=== PATIENT | male | born 1990 | race Caucasian/White ===

== ENCOUNTER 2017-01-12 21:59 | Observation (INO) | payer MEDICAID, OTHER ==
[~2017-01-12] VITALS: Ht 191.8 cm; Wt 80.4 kg
[2017-01-12] MEDS ORDERED: SOD CHLORIDE 0.9% 1,000 ML IV STA (22:38)
--- NOTE | 2017-01-12 22:44 | ERA ---
ER Documentation Chief Complaint Date/Time DATE: 01/12/17 TIME: 22:39 Chief Complaint FAINTED AFTER GETTING OUT OF CAR, DIASIXTO SMOKED MARIJUANNA EARLIER. HPI This is a 26-year-old male who is here he said he had developed windows rolled up and they were hot boxing. He said that he was watching Netflix in the car with his friends that he felt like his heart was skipping beats we felt like he needed to get some air. He then got out of the car and passed out for a few seconds. He did hit his head. He is not complaining of any pain. Says he feels normal now but stoned. Says he at baseline has a low heart rate does not know how low. Did not have any preceding chest pain shortness of breath. He says that he smoked pot from the same batch that he smoked tonight. He said he smoked his entire joint by himself. He says he smokes pot regularly. Patient's friend is now arrived to witness this event. She says the patient was smoking pot in the car and then he said he did not feel well so he got out of the car and she witnessed him syncopized and fell to the floor. She said he started shaking all over for about 10 seconds and he stopped it immediately woken stood up. He then got back in the car and a few minutes later he said he felt bad again so he got out of the car once again and again passed out was shaking for 7 seconds. He then was less responsive and got back in the car again. The patient then had another syncopal episode while in the car sitting in the car. Said he passed out completely and was unresponsive and had some mild shaking going on as well. She said he wakes up after each shaking episode is completely with it does not appear to have a postictal state. The patient says he smoked no more pot than usual. He says he smoked pot from the same patch before without any problems. 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 Medications Home Meds No Active Prescriptions or Reported Meds Allergies Allergies: Coded Allergies: No Known Allergy (Unverified , 01/12/17) FmHx Family History: No coronary disease Physical Exam Vitals Vital Signs Date Time Temp Pulse Resp B/P Pulse Ox O2 Delivery O2 Flow Rate FiO2 01/12/17 22:06 96.6 50 22 103/51 99 Physical Exam Const: Well-developed, well-nourished Head: Atraumatic, normocephalic Eyes: Normal Conjunctiva, PERRLA, EOMI, normal sclera, no nystagmus ENT: Normal External Ears, Nose and Mouth, moist mucus membranes. Neck: Full range of motion. No meningismus, no lymphadenopathy. Resp: Clear to auscultation bilaterally, no wheezing, rhonchi, rales Cardio: Sinus bradycardia with a sinus arrhythmia, heart rates 50-60, no murmurs, S1 S2 present] Abd: Soft, non tender x 4, non distended. Normal bowel sounds, no guarding or rebound, no pulsitile abdominal masses or bruits Skin: No petechiae or rashes, no ecchymosis , no maculopapular rash Back: No midline or flank tenderness Ext: No cyanosis, or edema, FROM x 4, normal inspection, neurovascularly intact x 4 Neur: Awake and alert, STR 5/5 x 4, sensation intact x 4, no focal findings, cerebellum intact Psych: Normal Mood and Affect Result Diagram: 01/12/17225801/12/172258 Results 24 hrs Laboratory Tests Test 01/12/17 22:59 White Blood Count 7.110^3/ul Red Blood Count 5.2410^6/ul Hemoglobin 15.7g/dl Hematocrit 44.9% Mean Corpuscular Volume 85.7fl Mean Corpuscular Hemoglobin 30.0pg Mean Corpuscular Hemoglobin Concent 35.0g/dl Red Cell Distribution Width 11.7% Platelet Count 60870^3/UL Mean Platelet Volume 10.9fl Neutrophils % 58.9% Lymphocytes % 28.8% Monocytes % 7.5% Eosinophils % 3.8% Basophils % 0.7% Nucleated Red Blood Cells % 0.0/100WBC Neutrophils # 4.210^3/ul Lymphocytes # 2.010^3/ul Monocytes # 0.510^3/ul Eosinophils # 0.310^3/ul Basophils # 0.110^3/ul Nucleated Red Blood Cells # 0.010^3/ul Sodium Level 138mmol/L Potassium Level 3.7mmol/L Chloride Level 101mmol/L Carbon Dioxide Level 29mmol/L Anion Gap 12 Blood Urea Nitrogen 16mg/dl Creatinine 1.12mg/dl Glucose Level 107mg/dl Calcium Level 9.4mg/dl Troponin I < 0.012ng/ml Current Medications Medications (Trade) Dose Ordered Sig/Alexis Route PRN Reason Start Time Stop Time Status Last Admin Dose Admin Sodium Chloride (NS) 1,000 ml @ 1,000 mls/hr Q1H STAT IV 01/12/17 22:38 01/12/17 23:37 DC 01/12/17 23:13 Procedures/MDM EKG: Rate/Rhythm: Sinus bradycardia with a right axis deviation QRS, ST, QT: NORMAL IN, QRS, QT] Impression: Sinus bradycardia] PROCEDURE: CT head, without contrast. CLINICAL INDICATION: Syncope. TECHNIQUE: Noncontrast CT examination of the head, with axial, sagittal and coronal reformatted images. Automated dose exposure control was employed. CTDI: 45.01 and DLP: 720.23 COMPARISON: None. FINDINGS: No acute hemorrhage. Subarachnoid spaces are substantially preserved and symmetric. Ventricles are unremarkable. No mass effect. Osorio-white matter distinction is preserved without evident decreased attenuation to suggest acute or recent infarct. Left maxillary sinusitis is partially visualized with mucous retention air- fluid level. Sinuses and osseous structures are otherwise unremarkable. IMPRESSION: 1. Partially visualized left maxillary sinusitis. 2. Otherwise, no acute process in the head. RPTAT: [facility] Physician Xavi Date Time Electronically viewed and signed by Physician Xavi on 01/12/2017 23:55 RS/ CC: TIGRE CONNELLY DO PROCEDURE: XR Chest. CLINICAL INDICATION: Syncope. TECHNIQUE: Single frontal chest x-ray. COMPARISON: None available. FINDINGS: The cardiomediastinal silhouette is unremarkable. No pneumothorax, pleural effusion or consolidation is seen. No acute osseous abnormality is noted. IMPRESSION: 1. No acute cardiopulmonary abnormality. RPTAT: HFN .Sherie Doyle MD, Date Time Electronically viewed and signed by .Sherie Doyle MD, MD on 01/12/2017 22: 59 .N/ CC: TIGRE CONNELLY DO Patient's heart rate is been running in the 40s and 50s while in the observation the ER. We will observe him for bradycardia and recurrent syncope. This is likely due to marijuana use however needs to watch him sure that he does not have anymore bradycardia episodes requiring any cardiovascular intervention Departure Diagnosis: Primary Impression: Syncope Qualified Code: R55 - Syncope, unspecified syncope type Additional Impressions: Substance abuse Bradycardia Condition: Stable TIGRE CONNELLY DO Jan 12, 2017 22:44
--- NOTE | 2017-01-12 22:59 | RADRPT ---
PROCEDURE: XR Chest. CLINICAL INDICATION: Syncope. TECHNIQUE: Single frontal chest x-ray. COMPARISON: None available. FINDINGS: The cardiomediastinal silhouette is unremarkable. No pneumothorax, pleural effusion or consolidation is seen. No acute osseous abnormality is noted. IMPRESSION: 1. No acute cardiopulmonary abnormality. RPTAT: HFN .Sherie Doyle MD, Date Time Electronically viewed and signed by .Sherie Doyle MD, on 01/12/2017 22:59 .N/
--- NOTE | 2017-01-12 23:55 | RADRPT ---
PROCEDURE: CT head, without contrast. CLINICAL INDICATION: Syncope. TECHNIQUE: Noncontrast CT examination of the head, with axial, sagittal and coronal reformatted im ages. Automated dose exposure control was employed. CTDI: 45.01 and DLP: 720.23 COMPARISON: None. FINDINGS: No acute hemorrhage. Subarachnoid spaces are substantially preserved and symmetric. Ventricles ar e unremarkable. No mass effect. Osorio-white matter distinction is preserved without evident decreased attenuation t o suggest acute or recent infarct. Left maxillary sinusitis is partially visualized with mucous retention air-fluid level. Sinuses and osseous structures are otherwise unremarkable. IMPRESSION: 1. Partially visualized left maxillary sinusitis. 2. Otherwise, no acute process in the head. RPTAT: [facility] Physician Xavi Date Time Electronically viewed and signed by Physician Xavi on 01/12/2017 23:55 RS/
[2017-01-13] VITALS (11 sets, daily range): BP systolic 110–129; BP diastolic 53–61; PULSE 39–69; RESP 18–20; Ht 191.8 cm; Wt 80.4 kg
[2017-01-13 00:01] LABS: BASOPHIL # 0.1 10^3/ul (0.0-0.1); BASOPHILS % 0.7 % (0.0-2.0); EOSINOPHILS # 0.3 10^3/ul (0.0-0.5); EOSINOPHILS % 3.8 % (0.0-7.0); HEMATOCRIT 44.9 % (42.0-52.0); HEMOGLOBIN 15.7 g/dl (14.0-18.0); LYMPHOCYTES % 28.8 % (15.0-51.0); MEAN CORPUSCULAR VOLUME 85.7 fl (82.0-101.0); MEAN PLATELET VOLUME 10.9 fl (7.4-10.4); MONOCYTE # 0.5 10^3/ul (0.3-0.9); MONOCYTES % 7.5 % (0.0-11.0); NEUTROPHIL # 4.2 10^3/ul (1.6-7.5); NEUTROPHILS % 58.9 % (39.0-77.0); PLATELET COUNT 260 10^3/UL (140-415); RED BLOOD COUNT 5.24 10^6/ul (4.70-6.10); RED CELL DISTRIBUTION WIDTH 11.7 % (11.5-14.5); WHITE BLOOD COUNT 7.1 10^3/ul (4.8-10.8)
[2017-01-13 00:20] LABS: ANION GAP 12 (8-16); BLOOD UREA NITROGEN 16 mg/dl (7-20); CALCIUM 9.4 mg/dl (8.4-10.2); CARBON DIOXIDE 29 mmol/L (21-31); CHLORIDE 101 mmol/L (97-110); CREATININE 1.12 mg/dl (0.61-1.24); GLUCOSE 107 mg/dl (70-220); POTASSIUM 3.7 mmol/L (3.5-5.1); SODIUM 138 mmol/L (135-144)
[2017-01-13 00:32] LABS: TROPONIN-I < 0.012 ng/ml (0.00-0.12)
[2017-01-13] MEDS ORDERED: SOD CHLORIDE 0.9% 1,000 ML IV SCH (02:28)
[2017-01-13] MEDS ORDERED: ONDANSETRON 4 MG INJ IV PRN ×2 (02:30→04:30)
[2017-01-13] MEDS ORDERED: ACETAMINOPHEN 325 MG TAB PO PRN ×2 (02:30→04:30)
[2017-01-13 06:52] LABS: BASOPHILS % 0.5 % (0.0-2.0); EOSINOPHILS # 0.1 10^3/ul (0.0-0.5); EOSINOPHILS % 1.9 % (0.0-7.0); HEMATOCRIT 43.3 % (42.0-52.0); HEMOGLOBIN 15.3 g/dl (14.0-18.0); LYMPHOCYTES # 1.5 10^3/ul (0.8-2.9); LYMPHOCYTES % 20.5 % (15.0-51.0); MEAN CORPUSCULAR HEMOGLOBIN 30.7 pg (29.0-33.0); MEAN CORPUSCULAR HGB CONC 35.3 g/dl (32.0-37.0); MEAN CORPUSCULAR VOLUME 86.8 fl (82.0-101.0); MEAN PLATELET VOLUME 10.5 fl (7.4-10.4); MONOCYTE # 0.5 10^3/ul (0.3-0.9); MONOCYTES % 6.7 % (0.0-11.0); NEUTROPHIL # 5.3 10^3/ul (1.6-7.5); NEUTROPHILS % 70.3 % (39.0-77.0); PLATELET COUNT 227 10^3/UL (140-415); RED BLOOD COUNT 4.99 10^6/ul (4.70-6.10); RED CELL DISTRIBUTION WIDTH 11.8 % (11.5-14.5); WHITE BLOOD COUNT 7.5 10^3/ul (4.8-10.8)
[2017-01-13 07:19] LABS: ALBUMIN 3.9 g/dl (3.3-4.9); ALBUMIN/GLOBULIN RATIO 1.39; BILIRUBIN,INDIRECT 0.7 mg/dl (0-1.1); BILIRUBIN,TOTAL 0.7 mg/dl (0.2-1.3); CALCIUM 9.1 mg/dl (8.4-10.2); CREATININE 0.99 mg/dl (0.61-1.24); PHOSPHORUS 4.5 mg/dl (2.5-4.9); POTASSIUM 3.9 mmol/L (3.5-5.1); TOTAL PROTEIN 6.7 g/dl (6.1-8.1)
[2017-01-13 08:26] LABS: THYROID STIMULATING HORMONE 0.498 MIU/L (0.465-4.680)
--- NOTE | 2017-01-13 10:16 | HP ---
Date/Time of Note Date/Time of Note DATE: 01/13/17 TIME: 09:50 Assessment/Plan VTE Prophylaxis VTE Prophylaxis Intervention: heparin Lines/Catheters IV Catheter Type (from Nrs): Saline Lock Assessment/Plan Assessment/Plan 1. Syncope -Likely drug-induced, from marijuana that he smoked vs bradycardia (heart rate has been noted to be as low as in the high 30s on the tele monitor). -Continue telemetry monitoring -Trend troponin -2D echo -Cardiology consult as needed 2. 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 Will consider cardiology evaluation -Check TSH HPI/ROS Admit Date/Time Admit Date/Time Jan 13, 2017 at 02:28 Hx of Present Illness This is a 26-year-old male with no significant past medical history who presented to the emergency department for altered loss of consciousness. He said that he was sitting in a car with his girlfriend smoking weed. After he got out of the car, he felt weak and became confused. He then had loss of consciousness and fell to the ground. He had a total of about 3 and 4 syncopal episodes regaining consciousness in between. He denied chest pain or shortness of breath. He said he smokes weed regularly and today he was not smoking more than what he usually smoke. He does not think his presenting symptom is related to the marijuana. PMH/Family/Social Social History Smoking Status: Never smoker Exam/Review of Systems Vital Signs Vitals Vital Signs Date Time Temp Pulse Resp B/P Pulse Ox O2 Delivery O2 Flow Rate FiO2 01/13/17 08:34 47 01/13/17 07:57 98.2 20 114/59 96 Intake and Output 01/12/17 01/12/17 01/13/17 15:00 23:00 07:00 Intake Total 240 ml Balance 240 ml Exam Constitutional: alert, oriented, well developed Head: atraumatic, normocephalic Eyes: EOMI, PERRL Respiratory: clear to auscultation, normal air movement Cardiovascular: other (Bradycardic with regular rhythm) Gastrointestinal: non-tender, soft Extremities: normal pulses Labs Result Diagram: 01/13/17 0637 01/13/17636 Medications Medications Current Medications Acetaminophen (Tylenol Tab) 650 mg Q6H PRN PO PAIN AND OR ELEVATED TEMP; Start 01/13/17 at 04:30 Ondansetron HCl (Zofran Inj) 4 mg Q6H PRN IV NAUSEA AND/OR VOMITING; Start at 04:30 YURIDIA SMITH MD Jan 13, 2017 10:00
--- NOTE | 2017-01-13 14:30 | RADRPT ---
Echocardiogram Report Patient Name: SUZANNA LUIS Gender: Male Date: 1990 Study Date: 13-Jan-2017 Out Patient Therapist: Georgina Harris [facility] Location: 5547 Ref. Physician: YURIDIA SMITH Quality: Good Procedures: Transthoracic echocardiogram with complete 2D, M-Mode, and doppler examination. Indications: Bradycardia. Syncope. 2D/M Mode Doppler Measurement Value Normal Ranges Measurement Value Normal Ranges LVIDd 2D 5.4 3.5 - 5.6 cm AV Peak Tommy 1.6 m/sec LVIDs 2D 3.4 2.1 - 4.1 cm AV Peak PG 10.0 mmHg FS 2D 37.7 % LVOT Peak Tommy 1.2 m/sec LVPWd 2D 1.0 0.6 - 1.1 cm LVOT Peak PG 5.0 mmHg IVSd 2D 1.0 0.6 - 1.1 cm MV E Peak Tommy 1.0 m/sec IVS/LVPW 2D 1.0 MV A Peak Tommy 0.6 m/sec AoR Diam 2D 2.7 2.0 - 3.7 cm MV E/A 1.7 LA/Ao 2D 1 0 - 1 MV Decel Time 254 msec EDV 2D 161.0 cm3 MV E/A 1.7 ESV 2D 39.0 cm3 LA Dimen 2D 2.9 2.3 - 4.0 cm Findings Left Ventricle: Lower limits of normal systolic function. Normal left ventricular cavity size. Normal left ventricular wall thickness. Ejection fraction is visually estimated at 55 %. Tissue Doppler/Mitral Doppler indices are within normal limits. Right Ventricle: Normal right ventricular size. Normal right ventricular systolic function. Left Atrium: The left atrium is normal in size. Right Atrium: The right atrium is normal in size. Mitral Valve: Normal appearance and function of the mitral valve with trace physiologic regurgitation. Aortic Valve: Normal appearance of the aortic valve. No significant aortic stenosis or insufficiency. Tricuspid Valve: Normal appearance of the tricuspid valve. Unable to obtain RVSP due to minimal presence of tricuspid regurgitation. Pulmonic Valve: Normal pulmonic valve appearance. Pericardium: Normal pericardium with no significant pericardial effusion. Aorta: Normal aortic root. IVC: Normal size and normal respiratory collapse consistent with normal right atrial pressure. Conclusions 1.The left ventricle is normal in size and systolic function. 2.Estimated left ventricular ejection fraction of 55%. Electronically Signed By: Jose Holland 13-Jan-2017 14:29:10 -0700 Patient Name: SUZANNA LUIS Study Date: 13-Jan-2017 [id number]
--- NOTE | 2017-01-13 15:16 | CONS ---
Date/Time of Note Date/Time of Note DATE: 01/13/17 TIME: 15:10 Assessment/Plan Assessment/Plan Chief Complaint/Hosp Course Assessment: Syncope - likely drug-related in setting of marijuana use, work up unremarkable Sinus bradycardia - asymptomatic, possibly due to athletic conditioning Recommendations: -echocardiogram normal -no additional cardiac work up at this time Problems: Consultation Date/Type/Reason Admit Date/Time Jan 13, 2017 at 02:28 Initial Consult Date Type of Consultation: Cardiology Reason for Consultation syncope 24 HR Interval Summary Free Text/Dictation The patient is a 26 year-old male with no significant past medical history who presented after a syncopal episode. He reports using marijuana in the car with his girlfriend he started feeling hot and sweaty. He got out of the car to get some air and subsequently lost consciousness. He thinks this may have happened 3 -4 times consecutively. He uses marijuana regularly. He denies prior episodes of presyncope or syncope. He has not had recurrent syncopal episodes since admission. EKG showed normal sinus rhythm without acute abnormalities. Telemetry monitoring showed sinus rhythm with heart rates down to the 40s without associated symptoms. Transthoracic echocardiogram normal. Detailed Summary Additional Comments 14 point review of systems negative other than per HPI. Exam/Review of Systems Vital Signs Vitals Vital Signs Date Time Temp Pulse Resp B/P Pulse Ox O2 Delivery O2 Flow Rate FiO2 01/13/17 12:00 68 01/13/17 11:44 98.2 20 129/57 97 Intake and Output 01/12/17 01/12/17 01/13/17 15:00 23:00 07:00 Intake Total 240 ml Balance 240 ml Exam Constitutional: alert, well developed Psych: nl mood/affect, no complaints Head: atraumatic, normocephalic Eyes: nl conjunctiva, nl lids ENMT: nl external ears & nose, nl nasal mucosa & septum Neck: non-tender, supple Respiratory: clear to auscultation, normal air movement Cardiovascular: regular rate and rhythm Gastrointestinal: non-tender, soft Musculoskeletal: nl extremities to inspection Extremities: No clubbing, No cyanosis, No edema Neurological: nl mental status, nl speech Results Result Diagram: 01/13/17 0637 01/13/17 0637 Results 24 hrs Laboratory Tests Test 01/12/17 22:59 01/13/17 06:37 01/13/17 12:10 White Blood Count 7.1 7.5 Red Blood Count 5.24 4.99 Hemoglobin 15.7 15.3 Hematocrit 44.9 43.3 Mean Corpuscular Volume 85.7 86.8 Mean Corpuscular Hemoglobin 30.0 30.7 Mean Corpuscular Hemoglobin Concent 35.0 35.3 Red Cell Distribution Width 11.7 11.8 Platelet Count 260 227 Mean Platelet Volume 10.9 H 10.5 H Neutrophils % 58.9 70.3 Lymphocytes % 28.8 20.5 Monocytes % 7.5 6.7 Eosinophils % 3.8 1.9 Basophils % 0.7 0.5 Nucleated Red Blood Cells % 0.0 0.0 Neutrophils # 4.2 5.3 Lymphocytes # 2.0 1.5 Monocytes # 0.5 0.5 Eosinophils # 0.3 0.1 Basophils # 0.1 0.0 Nucleated Red Blood Cells # 0.0 0.0 Sodium Level 138 139 Potassium Level 3.7 3.9 Chloride Level 101 106 Carbon Dioxide Level 29 27 Anion Gap 12 10 Blood Urea Nitrogen 16 13 Creatinine 1.12 0.99 Glucose Level 107 91 Calcium Level 9.4 9.1 Troponin I < 0.012 < 0.012 < 0.012 Hemoglobin A1c 5.0 Phosphorus Level 4.5 Magnesium Level 2.0 Total Bilirubin 0.7 Direct Bilirubin 0.00 Indirect Bilirubin 0.7 Aspartate Amino Transf (AST/SGOT) 23 Alanine Aminotransferase (ALT/SGPT) 35 Alkaline Phosphatase 75 Total Protein 6.7 Albumin 3.9 Globulin 2.80 Albumin/Globulin Ratio 1.39 Thyroid Stimulating Hormone (TSH) 0.498 Medications Medications Current Medications Acetaminophen (Tylenol Tab) 650 mg Q6H PRN PO PAIN AND OR ELEVATED TEMP; Start 01/13/17 at 04:30 Ondansetron HCl (Zofran Inj) 4 mg Q6H PRN IV NAUSEA AND/OR VOMITING; Start at 04:30 GIA COLON MD Jan 13, 2017 15:16
--- NOTE | 2017-01-13 17:29 | PDOCDIS ---
Discharge Instructions DIAGNOSIS Discharge Diagnosis 1. Suspect syncope likely secondary to Marijuana use 2. Bradycardia. Asymptomatic FOLLOW UP/APPOINTMENTS Follow-up Plan 1. Follow up with your primary care provider in a week 2. Stop using marijuana RUBY YANG Jan 13, 2017 17:29
== END 2017-01-13 19:11 | disposition home or self-care (01) ==
LOC: E/R 21:59 → MS4 01-13 02:28
PROVIDERS: ADMIT Internal Medicine; ATTEND Internal Medicine
DX: R55 Syncope and collapse (principal); R00.1 Bradycardia, unspecified; F12.10 Cannabis abuse, uncomplicated
CPT/HCPCS: 36415; 70450; 71010; 80048; 80053; 83036; 83735; 84100; 84443; 84484; 85025; 93005; 93306; J7030; Z7500; Z7502; G0378